=== PATIENT | female | born 1985 | race Caucasian/White ===

== ENCOUNTER 2016-10-28 18:28 | Emergency (ER) | payer OTHER ==
[~2016-10-28] VITALS: Ht 167.6 cm; Wt 123.5 kg
[~2016-10-28 18:28] MED LIST: ACET1TAB40 PO; CIPR500T4 PO; FER325 PO; IBUP-1542 PO; PHEN-538 PO
[2016-10-28 18:31] VITALS: Ht 167.6 cm; Wt 123.5 kg
[2016-10-28] MEDS ORDERED: SOD CHLORIDE 0.9% 1,000 ML IV STA (20:03)
[2016-10-28] MEDS ORDERED: ONDANSETRON 4 MG INJ IV STA (20:03)
[2016-10-28] MEDS ORDERED: KETOROLAC 15 MG INJ IV STA (20:03)
[2016-10-28 21:09] LABS: BASOPHIL # 0.1 10^3/ul (0.0-0.1); BASOPHILS % 0.5 % (0.0-2.0); EOSINOPHILS # 0.2 10^3/ul (0.0-0.5); EOSINOPHILS % 2.1 % (0.0-7.0); HEMOGLOBIN 12.6 g/dl (12.0-16.0); LYMPHOCYTES # 4.1 10^3/ul (0.8-2.9); LYMPHOCYTES % 37.7 % (15.0-51.0); MEAN CORPUSCULAR HEMOGLOBIN 30.7 pg (29.0-33.0); MEAN CORPUSCULAR HGB CONC 34.1 g/dl (32.0-37.0); MEAN PLATELET VOLUME 10.4 fl (7.4-10.4); MONOCYTE # 0.7 10^3/ul (0.3-0.9); MONOCYTES % 6.1 % (0.0-11.0); NEUTROPHILS % 53.3 % (39.0-77.0); PLATELET COUNT 276 10^3/UL (140-415); RED BLOOD COUNT 4.11 10^6/ul (4.20-5.40); RED CELL DISTRIBUTION WIDTH 12.6 % (11.5-14.5); WHITE BLOOD COUNT 10.8 10^3/ul (4.8-10.8)
[2016-10-28 21:38] LABS: ALBUMIN/GLOBULIN RATIO 1.08; CALCIUM 9.4 mg/dl (8.4-10.2); CREATININE 0.79 mg/dl (0.44-1.00); TOTAL PROTEIN 7.7 g/dl (6.1-8.1)
[2016-10-28] MEDS ORDERED: morphine 4 MG/ML VIAL IV STA (21:41)
--- NOTE | 2016-10-28 21:43 | RADRPT ---
PROCEDURE: CT abdomen and pelvis without contrast. CLINICAL INDICATION: Abdominal and flank pain TECHNIQUE: CT scan of the abdomen and pelvis without contrast was performed. Sagittal and coronal reformatted images were obtained from the axial source images. CTDI = 23.68 mGy; DLP = 1397.26 mGy- cm COMPARISON: None available. FINDINGS: Visualized lower thorax: Tiny subpleural anterior left lower lobe noncalcified 5 mm nodule is prese nt (series 3 image 14). There is no evidence of pulmonary infiltrate. There is no evidence for ple ural effusion. Liver, gallbladder, pancreas and spleen: The liver is top normal in size with preserved contour and attenuation. There is no evidence for a liver mass or ductal dilatation. The gallbladder is unrem arkable. No common bile duct abnormality is demonstrated. The pancreas is unremarkable. The splee n is normal in size. Adrenal glands and genitourinary system: The adrenal glands are normal bilaterally. The kidneys are normal and size, contour and attenuation with no evidence for masses, calculi or hydronephrosis. T he ureters are unremarkable. No urinary bladder abnormality is demonstrated. The uterus is unremar kable. Within the left ovary/adnexa there is an ovoid approximately 2.6 x 1.9 cm hypodense lesion b ut likely reflects a cyst (series 3 image 1 are 55). A small amount of free fluid is present within the pelvic cul-de-sac. Gastrointestinal system: The stomach is normal in caliber with no abnormality of significance. The small bowel is normal in caliber with no ileus, obstruction or wall thickening. The appendix and s urrounding fat are within the limits of normal. The colon shows no evidence for wall thickening or acute abnormality. There is no evidence for colitis or diverticulitis. Peritoneum, retroperitoneum, lymph nodes and vessels: The abdominal aorta is normal in caliber. The re is no evidence for atherosclerotic calcification. The inferior vena cava is unremarkable. There is no evidence for adenopathy or mass. There is no ascites. No pneumoperitoneum is present Osseous structures and musculoskeletal findings: There is no fracture, lytic or blastic lesion. No muscular abnormality or soft tissue pathology is present. RPTAT:HJJR IMPRESSION: 1. Ovoid water attenuating a left ovarian/adnexal lesion of 2.6 cm likely reflects a cyst with a sma ll amount of free fluid in the pelvic cul-de-sac. 2. No evidence of urinary tract calculi or hydronephrosis. 3. Small subpleural 5 mm lateral and anterior left lower lobe pulmonary nodule. Follow-up evaluatio n should be based upon Fleischner criteria. Physician Efrain Date Time Electronically viewed and signed by Eddy Retana Physician on 10/28/2016 21:42 JR/
--- NOTE | 2016-10-28 22:00 | ERD ---
ER Documentation Chief Complaint Date/Time DATE: 10/28/16 TIME: 21:51 Chief Complaint both flank pain x 2 weeks HPI This pleasant 31-year-old female presents to emergency department with bilateral flank pain. Patient reports that she has been experiencing burning and frequency of urination with decreased output. Has been told in the past that she has had abnormal creatinine. Patient denies any diagnosis of renal insufficiency, denies history of pyelonephritis, denies nausea, vomiting, fever , or chills. Patient reports symptoms intermittently 2 weeks worse today. ROS All systems reviewed and are negative except as per history of present illness. Medications Home Meds Active Scripts Hydrocodone/Acetaminophen (Gotham 5-325 Tablet) 1 Each Tablet, 1 TAB PO Q8 Y for PAIN, #10 TAB Prov:PRISCILLA,BRITTNI 10/29/16 Naproxen* (Naprosyn*) 500 Mg Tablet, 500 MG PO BID Y for PAIN AND/OR INFLAMMATION, #20 TAB Prov:PRISCILLA,BRITTNI 10/29/16 Phenazopyridine Hcl* (Pyridium*) 200 Mg Tab, 200 MG PO TID, #6 TAB Prov:CATHY RAMÍREZ NP 09/02/15 Ciprofloxacin Hcl* (Ciprofloxacin Hcl*) 500 Mg Tablet, 500 MG PO BID, #14 TAB Prov:CATHY RAMÍREZ NP 09/02/15 Ferrous Sulfate* (Ferrous Sulfate*) 325 Mg Tabec, 325 MG PO BID, #60 TAB Prov:CATHY RAMÍREZ NP 09/02/15 Ibuprofen* (Motrin*) 600 Mg Tab, 600 MG PO Q6H Y for PAIN AND OR ELEVATED TEMP, #30 TAB Prov:CATHY RAMÍREZ NP 09/02/15 Reported Medications Acetaminophen-Codeine* (Acetaminophen-Cod #3*) 300-30 Mg Tab, 1 TAB PO Q4H Y for PAIN, TAB 03/23/14 Allergies Allergies: Coded Allergies: No Known Allergy (Verified , 03/23/14) PMhx/Soc History of Surgery: Yes (ovarian cyst removed/CS X2, tonsilectomy, lft arm) Anesthesia Reaction: No Hx Neurological Disorder: No Hx Respiratory Disorders: No Hx Cardiac Disorders: No Hx Psychiatric Problems: No Hx Miscellaneous Medical Probl: Yes (anemia) Hx Alcohol Use: No Hx Substance Use: No Hx Tobacco Use: No Smoking Status: Never smoker Physical Exam Vitals Vital Signs Date Time Temp Pulse Resp B/P Pulse Ox O2 Delivery O2 Flow Rate FiO2 10/29/16 02:07 98.7 66 20 138/87 99 Room Air 10/28/16 18:31 98.3 81 20 137/86 99 Vitals stable, triage notes reviewed Physical Exam Const: Well-appearing, well-hydrated, obese, no acute distress Head: Eyes: Normal Conjunctiva, PERRLA, EOMI ENT: Normal External Ears, Nose and Mouth, Mucous membranes moist. Neck: Full range of motion..~ No meningismus. Resp: Clear to auscultation bilaterally, No rales wheezes or rhonchi Cardio: Regular rate and rhythm, no murmursS1-S2, no S3-S4 Abd: Abdomen obese, soft, non-tympanic, epigastric tenderness, pelvic tenderness, CVA tenderness bilaterally. Skin: No petechiae or rashes Back: No midline tenderness, CVA tenderness Ext: Neur: Awake and alert Psych: Normal Mood and Affect Result Diagram: 10/28/16204110/28/162041 Results 24 hrs Laboratory Tests Test 10/28/16 20:35 10/28/16 20:42 Urine Color YELLOW Urine Clarity SLIGHTLY CLOUDY Urine pH 5.0 Urine Specific [place] 1.028 Urine Ketones TRACEmg/dL Urine Nitrite NEGATIVEmg/dL Urine Bilirubin NEGATIVEmg/dL Urine Urobilinogen NEGATIVEmg/dL Urine Leukocyte Esterase NEGATIVELeu/ul Urine Microscopic RBC 14/HPF Urine Microscopic WBC 2/HPF Urine Squamous Epithelial Cells FEW/HPF Urine Bacteria FEW/HPF Urine Mucus MODERATE/HPF Urine Hemoglobin 2+mg/dL Urine Glucose NEGATIVEmg/dL Urine Total Protein NEGATIVEmg/dl Urine Test NEGATIVE White Blood Count 10.810^3/ul Red Blood Count 4.1110^6/ul Hemoglobin 12.6g/dl Hematocrit 37.0% Mean Corpuscular Volume 90.0fl Mean Corpuscular Hemoglobin 30.7pg Mean Corpuscular Hemoglobin Concent 34.1g/dl Red Cell Distribution Width 12.6% Platelet Count 74358^3/UL Mean Platelet Volume 10.4fl Neutrophils % 53.3% Lymphocytes % 37.7% Monocytes % 6.1% Eosinophils % 2.1% Basophils % 0.5% Nucleated Red Blood Cells % 0.0/100WBC Neutrophils # (Manual) 5.710^3/ul Lymphocytes # 4.110^3/ul Monocytes # 0.710^3/ul Eosinophils # 0.210^3/ul Basophils # 0.110^3/ul Nucleated Red Blood Cells # 0.010^3/ul Sodium Level 140mmol/L Potassium Level 4.0mmol/L Chloride Level 99mmol/L Carbon Dioxide Level 28mmol/L Anion Gap 17 Blood Urea Nitrogen 11mg/dl Creatinine 0.79mg/dl Glucose Level 90mg/dl Calcium Level 9.4mg/dl Total Bilirubin 0.0mg/dl Direct Bilirubin 0.00mg/dl Indirect Bilirubin 0.0mg/dl Aspartate Amino Transf (AST/SGOT) 24IU/L Alanine Aminotransferase (ALT/SGPT) 34IU/L Alkaline Phosphatase 70IU/L Total Protein 7.7g/dl Albumin 4.0g/dl Globulin 3.70g/dl Albumin/Globulin Ratio 1.08 Lipase 77U/L Current Medications Medications (Trade) Dose Ordered Sig/Kaitlynn Route PRN Reason Start Time Stop Time Status Last Admin Dose Admin Sodium Chloride (NS) 1,000 ml @ 1,000 mls/hr Q1H STAT IV 10/28/16 20:03 10/28/16 21:02 DC 10/28/16 21:33 Ondansetron HCl (Zofran Inj) 4 mg ONCE STAT IV 10/28/16 20:03 10/28/16 20:09 DC 10/28/16 20:56 Ketorolac Tromethamine (Toradol) 15 mg ONCE STAT IV 10/28/16 20:03 10/28/16 20:09 DC 10/28/16 20:56 Morphine Sulfate (morphine) 4 mg ONCE STAT IV 10/28/16 21:41 10/28/16 21:43 DC 10/28/16 21:56 Acetaminophen/ Hydrocodone Bitart (Gotham (5/325)) 1 tab ONCE ONCE PO 10/29/16 02:00 10/29/16 02:01 DC Interpretation text CBC shows no evidence of hemorrhage or infection Chemistry shows no evidence of significant electrolyte abnormalities or renal insufficiency Liver function tests shows no evidence of acute biliary or hepatic dysfunction Lipase shows no evidence of acute pancreatitis Procedures/MDM PROCEDURE: CT abdomen and pelvis without contrast. CLINICAL INDICATION: Abdominal and flank pain TECHNIQUE: CT scan of the abdomen and pelvis without contrast was performed. Sagittal and coronal reformatted images were obtained from the axial source images. CTDI = 23.68 mGy; DLP = 1397.26 mGy-cm COMPARISON: None available. FINDINGS: Visualized lower thorax: Tiny subpleural anterior left lower lobe noncalcified 5 mm nodule is present (series 3 image 14). There is no evidence of pulmonary infiltrate. There is no evidence for pleural effusion. Liver, gallbladder, pancreas and spleen: The liver is top normal in size with preserved contour and attenuation. There is no evidence for a liver mass or ductal dilatation. The gallbladder is unremarkable. No common bile duct abnormality is demonstrated. The pancreas is unremarkable. The spleen is normal in size. Adrenal glands and genitourinary system: The adrenal glands are normal bilaterally. The kidneys are normal and size, contour and attenuation with no evidence for masses, calculi or hydronephrosis. The ureters are unremarkable. No urinary bladder abnormality is demonstrated. The uterus is unremarkable. Within the left ovary/adnexa there is an ovoid approximately 2.6 x 1.9 cm hypodense lesion but likely reflects a cyst (series 3 image 1 are 55). A small amount of free fluid is present within the pelvic cul-de-sac. Gastrointestinal system: The stomach is normal in caliber with no abnormality of significance. The small bowel is normal in caliber with no ileus, obstruction or wall thickening. The appendix and surrounding fat are within the limits of normal. The colon shows no evidence for wall thickening or acute abnormality. There is no evidence for colitis or diverticulitis. Peritoneum, retroperitoneum, lymph nodes and vessels: The abdominal aorta is normal in caliber. There is no evidence for atherosclerotic calcification. The inferior vena cava is unremarkable. There is no evidence for adenopathy or mass. There is no ascites. No pneumoperitoneum is present Osseous structures and musculoskeletal findings: There is no fracture, lytic or blastic lesion. No muscular abnormality or soft tissue pathology is present. RPTAT:HJJR IMPRESSION: 1. Ovoid water attenuating a left ovarian/adnexal lesion of 2.6 cm likely reflects a cyst with a small amount of free fluid in the pelvic cul-de-sac. 2. No evidence of urinary tract calculi or hydronephrosis. 3. Small subpleural 5 mm lateral and anterior left lower lobe pulmonary nodule. Follow-up evaluation should be based upon Fleischner criteria. Electronically viewed and signed by Eddy Retana Physician on 10/28/2016 21:42 This 31-year-old female presents to emergency department for evaluation of bilateral flank pain 2 weeks intermittently with history of abnormal creatinine. Patient is reporting dysuria, frequency and urgency of urination. Patient's differential diagnosis includes but not limited to renal insufficiency , urinary tract infection, pyelonephritis, or cholelithiasis. Emergency room course today includesIV hydration with a liter of normal saline, pain control with IV Toradol,, IV Zofran for nausea, with effective temporary relief of pain. Patient diagnostic testing includes laboratory evaluation with no evidence of abnormal creatinine, WBCs without evidence of leukocytosis or anemia. No electrolyte imbalance or renal insufficiency, no pancreatitis or biliary obstruction, no hepatitis. Urinalysis negative for evidence of leukocytosis, or nitrates. CT abdomen and pelvis without contrast radiologist impression: Ovoid water attenuating a left ovarian/adnexal lesion of 2.6 cm likely reflects a cyst with a small amount of free fluid in pelvic cul-de-sac. No evidence of urinary tract calculi or hydronephrosis. Small subpleural 5 mm lateral anterior left lower lobe pulmonary nodule . These findings were discussed with patient informed she has an ovarian cyst on the left side that requires evaluation by gynecology, schedule appointment with primary care physician for evaluation of small subpleural 5 mm lateral and anterior left lower lobe pulmonary nodule. Patient was told this was a incidental finding but I recommend following up with primary care for full evaluation. Plan to discharge patient home with pain control, patient is crying states she has had an ovarian cyst in the past when she was 18 is in pain now and frustrated. One Gotham provided prior to discharge. Patient will be discharged home with Gotham 5 /325 count of 10, Naprosyn 500 mg 1 tab p.o. twice daily take with food. Patient is stable with no new complaints during ER course, clinically there is no current evidence to suggest meningitis, sepsis, acute abdomen, acute coronary syndromes, pulmonary embolism or any other emergent condition appearing to require further evaluation or hospitalization. I feel the patient is stable for discharge at this time. I have discussed results, examination findings, the treatment plan with the patient and family present prior to discharge. Indications for emergent reevaluation, side effects of medication were also discussed. All questions were answered. Patient verbalizes understanding and agrees with plan of care. Departure Diagnosis: Primary Impression: Ovarian cyst Laterality: left Qualified Code: N83.202 - Cyst of left ovary Condition: Good Patient Instructions: Ovarian Cyst Referrals: [facility]FERRAL [facility]IST Additional Instructions: follow up with your primary care physician for a incidental finding of a small subpleural 5 mm lateral and anterior left lower lobe pulmonary nodule. Comments Thank you for for coming to [facility] for your care today. Please ask your nurse or provider if you have questions about your care today and do not leave until all your questions have been answered. Please use any medications given as directed and follow-up with your doctor (or the doctor you were referred to) in the next 2-3 days. If you do not have a primary care doctor you may follow up at the [facility] (listed below). You may also use motrin and tylenol as needed for fever and/or pain unless instructed otherwise by your provider or nurse. Indications for more urgent follow-up have been discussed, but you may return to the Emergency Department at ANY time for any worrisome or worsening symptoms. If you have abdominal pain, please know that no test or exam you received is perfect and you should follow up within 8 hours for continued pain. If you had any imaging studies today, such as an X-Ray or CT Scan, these studies will be reviewed later by a radiologist. You will be called if there are important findings that were not identified today, so make sure the contact information you provided at registration is correct. If you received any narcotic pain control medicine today, such as Vicodin, Morphine or Dilaudid, your coordination and judgment may be affected for a number of hours. Please do not drive or operate heavy machinery, and you may want someone to assist you at home. If you were given a prescription for narcotic medication, be aware that it is very addictive- use sparingly and only if necessary. BRITTNI WELLS Oct 28, 2016 22:00
[2016-10-29 01:31] LABS: ADD UMIC YES; UR ASCORBIC ACID NEGATIVE (NEGATIVE); UR BACTERIA FEW /HPF (NONE SEEN); UR BILIRUBIN (Dip) NEGATIVE (NEGATIVE); UR BLOOD (Dip) 2+ mg/dL (NEGATIVE); UR CLARITY SLIGHTLY CLOUDY (CLEAR); UR COLOR YELLOW (YELLOW); UR GLUCOSE (Dip) NEGATIVE (NEGATIVE); UR KETONES (Dip) TRACE mg/dL (NEGATIVE); UR LEUKOCYTE ESTERASE (Dip) NEGATIVE Leu/ul (NEGATIVE); UR MUCUS MODERATE /HPF (NONE SEEN); UR NITRITE (Dip) NEGATIVE (NEGATIVE); UR RBC 14 /HPF (0-5); UR SPECIFIC GRAVITY (Dip) 1.028 (1.003-1.030); UR SQUAMOUS EPITHELIAL CELL FEW /HPF (FEW); UR TOTAL PROTEIN (Dip) NEGATIVE (NEGATIVE); UR UROBILINOGEN (Dip) NEGATIVE (NEGATIVE)
[2016-10-29] MEDS ORDERED: NAPR-260 PO (01:51)
[2016-10-29] MEDS ORDERED: HYDROCODONE/APAP (5/325) TAB PO ONE (02:00)
[2016-10-29] MEDS ORDERED: HYDR-906 PO (02:03)
[2016-10-29 02:07] VITALS: BP 138/87; PULSE 66; RESP 20; TEMP 98.7
== END 2016-10-29 02:09 | disposition home or self-care (01) ==
LOC: FTE 18:28
DX: N83.202 Unspecified ovarian cyst, left side (principal); R10.2 Pelvic and perineal pain
CPT/HCPCS: 36415; 74176; 80053; 81001; 83690; 84703; 85025; 96374; 96375; J1885; J2270; J2405; J7030; Z7502